=== PATIENT | male | born 1990 | race Caucasian/White ===

== ENCOUNTER 2018-03-06 06:00 | Day surgery (SDC) | payer OTHER ==
[2018-03-06] VITALS (13 sets, daily range): BP systolic 147–193; BP diastolic 75–103; PULSE 60–122; RESP 18–25; Ht 180.3 cm; Wt 98.8 kg
[~2018-03-06] VITALS: Ht 180.3 cm; Wt 98.8 kg
[2018-03-06] MEDS ORDERED: BUPIVACAINE 0.5% (SDV) 30 ML INJ ONE (06:44)
--- NOTE | 2018-03-06 07:20 | PREAC ---
Date/Time of Note Date/Time of Note DATE: 03/06/18 TIME: 07:19 Anesthesia Eval and Record Evaluation Time Pre-Procedure Interview DATE: 03/06/18 TIME: 07:19 Age 27 Sex male NPO: 8 hrs Preoperative diagnosis PHIMOSIS Planned procedure CIRCUMCISION Past Medical History Past Medical History: Includes GI: Obesity Surgery & Anesthesia Issues No known issue Meds Anticoagulation: No Beta Albert within 24 hr: No Reason Beta Albert not given: Pt. not on B-Albert Meds reviewed: Yes Allergies Allergies Reviewed: Yes (NKDA) Labs/Studies Labs Reviewed: Reviewed by anesthesiologist test: N/A Studies: CXR (NAPD) Pre-procedure Exam Last vitals Vital Signs Date Temp Pulse Resp B/P (MAP) Pulse Ox O2 O2 Flow FiO2 Time Delivery Rate 03/06/18 98.3 78 18 148/98 100 06:49 (115) Airway: Adequate mouth opening, Adequate thyromental dist Mallampati: Mallampati II Teeth: Normal Lung: Normal Heart: Normal ASA Physical Status ASA physical status: 2 Emergency: None Planned Anesthetic General/MAC: ETT Planned Pain Management Parenteral pain med, Local by surgeon Pre-operative Attestations Prior to commencing anesthesia and surgery, the patient was re-evaluated, there was verification of: *The patient's identity *The results of appropriate recent lab work and preoperative vital signs *The above evaluation not changing prior to induction *Anesthetic plan, risk benefits, alternative and complications discussed with patient/family; questions answered; patient/family understands, accepts and wishes to proceed. Seth Cox M.D. Mar 06, 2018 07:20
[2018-03-06] MEDS ORDERED: ONDANSETRON 4 MG INJ ONE (07:26)
[2018-03-06] MEDS ORDERED: PROPOFOL 20 ML ONE (07:26)
[2018-03-06] MEDS ORDERED: ROCURONIUM 50 MG INJ ONE (07:26)
[2018-03-06] MEDS ORDERED: NEOSTIGMINE 3 MG/3 ML SYRINGE ONE (07:26)
[2018-03-06] MEDS ORDERED: GLYCOPYRROLATE 0.4 MG INJ ONE (07:26)
[2018-03-06] MEDS ORDERED: FENTAnyl 50 MCG/ML VIAL ONE (07:26)
[2018-03-06] MEDS ORDERED: MIDAZOLAM 1 MG/ML 2 ML INJ ONE (07:26)
[2018-03-06] MEDS ORDERED: CEFAZOLIN 1 GM INJ ONE (07:26)
[2018-03-06] MEDS ORDERED: DEXAMETHASONE 4 MG/ML 1 ML INJ ONE (07:26)
[2018-03-06] MEDS ORDERED: ONDANSETRON 4 MG INJ IV PRN (07:30)
[2018-03-06] MEDS ORDERED: LABETALOL HCL 20MG INJ IV PRN (07:30)
[2018-03-06] MEDS ORDERED: TRIMETHOBENZAMIDE 100 MG/ML VIAL IM PRN (07:30)
[2018-03-06] MEDS ORDERED: OXYCODONE/ACETAMINOPHEN (5/325) TAB PO PRN ×2 (07:30)
[2018-03-06] MEDS ORDERED: HYDROmorphONE 1 MG/5 ML IV SYRINGE IV PRN ×3 (07:30)
[2018-03-06] MEDS ORDERED: hydrALAzine 20 MG INJ IV PRN (07:30)
[2018-03-06] MEDS ORDERED: EPHEDrine SULFATE 50 MG/5 ML SYG IV PRN (07:30)
[2018-03-06] MEDS ORDERED: IPRATROPIUM (NEB) 0.5 MG/2.5 ML AMP HHN PRN (07:30)
[2018-03-06] MEDS ORDERED: MEPERIDINE 25 MG INJ IV PRN (07:30)
[2018-03-06] MEDS ORDERED: DIPHENHYDRAMINE 50 MG INJ IV PRN (07:30)
[2018-03-06] MEDS ORDERED: ALBUTEROL 0.083% (NEB) 2.5 MG/3 ML AMP HHN PRN (07:30)
[2018-03-06] MEDS ORDERED: MIDAZOLAM 1 MG/ML 2 ML INJ IV PRN (07:30)
[2018-03-06] MEDS ORDERED: FENTAnyl 50 MCG/ML VIAL IV PRN ×3 (07:30)
--- NOTE | 2018-03-06 07:31 | HPN ---
Date/Time of Note Date/Time of Note DATE: 03/06/18 TIME: 07:31 Interval H&P Admission Note Pt. seen H&P reviewed: No system changes PACO CHIANG MD Mar 06, 2018 07:31
[2018-03-06] MEDS ORDERED: SUGAMMADEX SODIUM 200 MG/2 ML VIAL IV ONE (07:59)
[2018-03-06] MEDS ORDERED: METOCLOPRAMIDE 10 MG INJ ONE (08:39)
--- NOTE | 2018-03-06 08:43 | NUR ---
nursing rr RECEIVED PT FROM OR NOT IN ANY DISTRESS PT HAS DSG TO PINES CLEAN AND DRY .IV TO LEFT HAND G20 NEEDLE WITH LR INFUSING WELL .
--- NOTE | 2018-03-06 08:46 | OPR ---
Date/Time of Note Date/Time of Note DATE: 03/06/18 TIME: 08:42 Operative Report Procedure Date: Mar 06, 2018 Preoperative Diagnosis Phimosis and balanitis Postoperative Diagnosis Same Operation/Procedure Performed Circumcision Surgeon see signature line Mail Technician information technology assistant Eben Anesthesia Type: general Anesthesiologist: Seth Cox M.D. Estimated Blood Loss: minimal Transfusion none Specimen Foreskin Grafts/Implants none Complications none Pt Condition Post Procedure: stable Disposition: PACU Indications Phimosis and balanitis Procedure Description The patient was brought to the operating room. Time out was done. The patient was identified by his name, date and the procedure. Patient was given 2 g of Ancef IV at the start of the procedure. The genital area was then prepped and draped in usual sterile manner. A dorsal slit was first done so the foreskin can be retracted. The penis was then painted again with Betadine solution. The foreskin at the level of the alba was marked then incised. The foreskin was then retracted and another incision was made one centimeter proximal to the alba. The skin between the 2 incisions was removed. All the bleeders were electrocoagulated and good hemostasis was obtained. The subcutaneous tissue was approximated with 3-0 Vicryl interrupted sutures at the 9,12, 3 and 6 o'clock position. The incision was then closed with 3-0 Vicryl interrupted sutures. Then the patient was injected with half percent Marcaine around the base of the penis for local anesthesia. The incision was then covered was a Vaseline gauze and a Pankaj. Patient was transferred to the recovery room in stable and satisfactory condition. PACO CHIANG MD Mar 06, 2018 08:46
--- NOTE | 2018-03-06 08:51 | PAC ---
Date/Time of Note Date/Time of Note DATE: 03/06/18 TIME: 08:51 Post-Anesthesia Notes Post-Anesthesia Note Last documented vital signs Vital Signs Date Temp Pulse Resp B/P (MAP) Pulse Ox O2 O2 Flow FiO2 Time Delivery Rate 03/06/18 98.2 08:46 03/06/18 78 18 148/98 100 06:49 (115) Activity: WNL Respiratory function: WNL Cardiovascular function: WNL Mental status: Baseline Pain reasonably controlled: Yes Hydration appropriate: Yes Nausea/Vomiting absent: Yes Seth Cox M.D. Mar 06, 2018 08:51
[2018-03-06] MEDS ORDERED: IBUPROFEN 800 MG TAB PO SCH (09:00)
--- NOTE | 2018-03-06 09:32 | NUR ---
TRANSFER PT TRANSFER TO [facility] IN STABLE CONDITION .CARE PROVIDED PER [facility] STANDARDS.
[2018-03-06] MEDS ORDERED: TRIMETHOBENZAMIDE 100 MG/ML VIAL IM SCH (10:30)
--- NOTE | 2018-03-06 12:15 | NUR ---
1030-UP TP BATHROOM WITH HELP,GAIT STEADY,VOIDED QS.NO BLEEDING NOTED.
== END 2018-03-06 11:00 | disposition home or self-care (01) ==
LOC: SDS 06:00
PROVIDERS: ATTEND Urology
DX: N47.1 Phimosis (principal); N48.1 Balanitis
CPT/HCPCS: 54161; 88304; J0360; J0690; J1100; J1200; J2175; J2250; J2405; J2710; J2765; J3010; J3250; Z7512; Z7610